=== PATIENT | male | born 1945 | race Caucasian/White ===

== ENCOUNTER 2020-04-09 00:25 | Outpatient (CLI) | payer MEDICARE, SELFPAY ==
[2020-04-09 18:27] LABS: SARS-CoV-2 RNA PCR Negative
== END 2020-04-09 00:26 | disposition home or self-care (01) ==
LOC: ANHCOVIDDT 00:25
PROVIDERS: PCP Family Medicine; Visit Provider Internal Medicine Gastroenterology
DX: Z20.822 Contact with and (suspected) exposure to COVID-19 (principal); Z01.812 Encounter for preprocedural laboratory examination
CPT/HCPCS: C9803; U0003; U0005

== ENCOUNTER 2020-04-12 01:17 | Day surgery (SDC) | payer MEDICARE, SELFPAY ==
[2020-03-29 08:35] VITALS: BMI 33.7
[2020-04-12 10:10] VITALS: BP 161/77; PULSE 68; RESP 18; TEMP 36; O2SAT 98; BMI 32.8
[2020-04-12] MEDS: LACTATED RINGERS 1,000 ML 150 ML IV CONT (10:23)
--- NOTE | 2020-04-12 10:38 | WPDANESEPPF ---
Anes - Initial Pre Proc Eval Procedure: Operation Date: 04/12/20 10:30 Proposed Procedures p Screening Colonoscopy - Santy Reyes DO Date/Time: 04/12/20 10:38 Surgeon: Santy Reyes DO Pre Op Diagnosis: hx of colon polyps, screening Patient Data Age: 74 Gender: M Height: 5 ft 10 in Weight: 103.6 kg Last Vital Signs Temp 96.8 F L 04/12/20 10:10 Pulse 68 04/12/20 10:10 Resp 18 04/12/20 10:10 BP 161/77 H 04/12/20 10:10 Pulse Ox 98 04/12/20 10:10 Allergies Allergy/AdvReac Type Severity Reaction Status Date / Time No Known Allergies Allergy Verified 04/12/20 10:08 Home Medications Medication Instructions Recorded Confirmed Type Lactobacillus rhamnosus GG 1 cap PO DAILY 03/29/20 04/12/20 History [Culturelle] amlodipine 5 mg PO DAILY 03/29/20 04/12/20 History guar gum [Benefiber (guar gum)] 1 tbsp PO DAILY 03/29/20 04/12/20 History omeprazole 20 mg PO DAILY 03/29/20 04/12/20 History Patient hx anesthesia problems: none Family hx anesthesia problems: none PMFSH Past Medical History Medical History (Updated 04/12/20 @ 10:38 by Ramos Mendiola MD) GERD (gastroesophageal reflux disease) Hypertension CASSANDRA (obstructive sleep apnea) Social History Social History Smoking packs per day: 1.5 Smoking cigarettes per day: 30.0 Years smoked: 50 Smoking pack-years: 75.00 Smoking status: Former smoker Tobacco type: cigarettes Alcohol intake: current Drinks per week: 4 Alcohol use details: wine Living arrangements: with family Gender identity (if verbalized by the patient): Male Spiritual care concerns: No Anes - Eval Final PreProcedure Day of Procedure 04/12/20 10:38 Patient weight: obese Heart: regular rate and rhythm Lungs: clear to auscultation Airway: Mallampati scale class II Neurological: alert and oriented Last oral intake: >/= 8 hours ASA classification: III Emergent: no Anesthetic plan: proceed Anesthesia type and monitoring: general GIVS and standard monitoring Informed Consent: The patient's anesthetic plan and its attendant risks and benefits were discussed with the patient/family/POA. Questions were solicited and answers provided to the satisfaction of the patient/family/POA.
--- NOTE | 2020-04-12 11:09 | WPDGICN ---
GI Consult Note Consult date/time: 04/12/20 11:09 HPI: Reason for visit is colonoscopy. This very pleasant gentleman seen in consultation request of the primary physician. Impression: Screening and surveillance colonoscopy. The patient has a history of colon polyps. He did have an episode of rectal bleeding and diarrhea. Underlying inflammatory neoplastic disease will be excluded. GERD. CASSANDRA. HTN. Obesity. Pre diabetes. Recommendation: Colonoscopy. History: This very pleasant gentleman is being admitted for screening and surveillance colonoscopy previous history colon polyps. He did have an episode of abdominal pain, cramping and rectal bleeding. The last 1 day and abated. He is here for colonoscopy. Physical examination: General: very pleasant patient in no acute distress. HEENT: Head was normocephalic sclerae is clear mouth without masses neck was supple. Heart: Rate rhythm regular without S3 or S4. Lungs: CTA. Abdomen: Soft with no guarding or rigidity. Bowel sounds were active. Neurologic: Cranial nerves 2 through 12 intact. No focal defects. No clonus. Musculoskeletal system: Revealed no joint tenderness or swelling no muscle atrophy. Extremities: Reveal no significant edema. Skin: Warm and dry with normal turgor. Mental status: intact. Patient is alert and oriented. Review of Systems Review of Systems: All systems reviewed & are unremarkable except as noted in HPI and below PMFSH Past Medical History Medical History (Updated 04/12/20 @ 10:38 by Ramos Mendiola MD) GERD (gastroesophageal reflux disease) Hypertension CASSANDRA (obstructive sleep apnea) Social History Social History Smoking packs per day: 1.5 Smoking cigarettes per day: 30.0 Years smoked: 50 Smoking pack-years: 75.00 Smoking status: Former smoker Tobacco type: cigarettes Alcohol intake: current Drinks per week: 4 Alcohol use details: wine Living arrangements: with family Gender identity (if verbalized by the patient): Male Spiritual care concerns: No Meds Home Medications and Allergies Home Medications Medication Instructions Recorded Confirmed Type Lactobacillus rhamnosus GG 1 cap PO DAILY 03/29/20 04/12/20 History [Culturelle] amlodipine 5 mg PO DAILY 03/29/20 04/12/20 History guar gum [Benefiber (guar gum)] 1 tbsp PO DAILY 03/29/20 04/12/20 History omeprazole 20 mg PO DAILY 03/29/20 04/12/20 History Allergies Allergy/AdvReac Type Severity Reaction Status Date / Time No Known Allergies Allergy Verified 04/12/20 10:08 Vital Signs Vital Signs - 24 hr 04/12/20 10:10 Temperature 36.0 C L Pulse Rate 68 Respiratory Rate 18 Blood Pressure 161/77 H Pulse Oximetry 98
[2020-04-12 12:27] VITALS: BP 85/46; PULSE 64; RESP 20; O2SAT 98
[2020-04-12 12:37] VITALS: BP 101/54; PULSE 60; RESP 20; O2SAT 97
== END 2020-04-12 13:04 | disposition home or self-care (01) ==
PROVIDERS: PCP Family Medicine; Visit Provider Internal Medicine Gastroenterology
PROC: 0DJD8ZZ Inspection of Lower Intestinal Tract, Via Natural or Artificial Opening Endoscopic (ICD-10-PCS; CPT 45378; principal; 2020-04-12 10:30)
DX: Z12.11 Encounter for screening for malignant neoplasm of colon (principal); K92.1 Melena; K63.5 Polyp of colon; K55.20 Angiodysplasia of colon without hemorrhage; K57.30 Diverticulosis of large intestine without perforation or abscess without bleeding; K64.8 Other hemorrhoids; I10 Essential (primary) hypertension; G47.33 Obstructive sleep apnea (adult) (pediatric); R73.03 Prediabetes; K21.9 Gastro-esophageal reflux disease without esophagitis; Z87.891 Personal history of nicotine dependence; E66.9 Obesity, unspecified; Z68.32 Body mass index [BMI] 32.0-32.9, adult
CPT/HCPCS: 45380; 45388; 88305; C9803; J2704; J7120; U0003; U0005